=== PATIENT | female | born 1950 | race Two or more races ===

== ENCOUNTER 2022-06-05 05:05 | Day surgery (SDC) | payer OTHER ==
[~2022-06-05] VITALS: Ht 170.2 cm; Wt 76.2 kg
[~2022-06-05 05:05] MED LIST: ALBUTER; ATORVASTATIN CA10 MG PO; DILTIAZEM ER180 M1 PO; ECOTRIN325 M1 PO; LOSARTAN-HCTZ1 EAC2 PO; VITAMIN D PO
== END 2022-06-05 13:35 | disposition home or self-care (01) ==
LOC: CIR.AMB 05:05
PROVIDERS: ATTEND Obstetrics & Gynecology Gynecology
DX: N81.6 Rectocele (principal); Z20.822 Contact with and (suspected) exposure to COVID-19; Z88.8 Allergy status to other drugs, medicaments and biological substances; N81.83 Incompetence or weakening of rectovaginal tissue; I10 Essential (primary) hypertension; E78.5 Hyperlipidemia, unspecified; J45.909 Unspecified asthma, uncomplicated; F17.210 Nicotine dependence, cigarettes, uncomplicated